=== PATIENT | female | born 1965 | race Caucasian/White ===

== ENCOUNTER 2020-10-24 21:49 | Emergency (ER) | payer OTHER ==
[~2020-10-24] VITALS: Ht 157.5 cm; Wt 68.0 kg
[2020-10-24] MEDS ORDERED: ADDERALL 10 MG10 MG PO (21:59)
[2020-10-24] MEDS ORDERED: PEPCID40 MG PO (21:59)
[2020-10-24 22:35] LABS: ABSOLUTE LYMPHOCYTES 0.9 thou/uL (0.8-5.3); ABSOLUTE MONOCYTES 0.9 thou/uL (0.0-1.2); ABSOLUTE NEUTROPHILS 8.7 thou/uL (1.6-8.1); BASOPHILS 0.2 %; EOSINOPHILS 0.3 %; HEMATOCRIT 41.5 % (37.0-47.0); HEMOGLOBIN 14.3 gm/dL (12.0-15.0); LYMPHOCYTES 8.9 %; MCHC 34.3 g/dL (28.0-37.0); MCV 90.3 fL (80.0-100.0); MONOCYTES 8.1 %; MPV 8.7 fl. (7.2-11.1); NUCLEATED RBCS 0 /100WBC; PLATELET COUNT* 320 thou/uL (150-400); POLYS 82.5 %; RDW-CV 12.4 % (10.5-14.5); WBC 10.5 thou/uL (4.0-11.0)
[2020-10-24 22:47] LABS: CALCIUM 8.5 mg/dL (8.5-10.1); CREATININE 0.7 mg/dL (0.6-1.3); POTASSIUM 3.3 mmol/L (3.5-5.1)
[2020-10-24 22:52] LABS: ALBUMIN 3.4 g/dL (3.4-5.0); TOTAL BILIRUBIN 0.2 mg/dL (<0.1-1.0); TOTAL PROTEIN 7.6 g/dL (6.4-8.2)
[2020-10-24 22:55] LABS: URINE BILIRUBIN NEGATIVE (Negative); URINE BLOOD 1+ (Negative); URINE CLARITY CLEAR; URINE COLOR STRAW; URINE GLUCOSE-RANDOM NEGATIVE (Negative); URINE KETONES NEGATIVE (Negative); URINE LEUKOCYTES-REFLEX 1+ (Negative); URINE NITRITE-REFLEX NEGATIVE (Negative); URINE PROTEIN NEGATIVE (Negative); URINE UROBILINOGEN 0.2 E.U./dl (0.2-1.0)
[2020-10-24 23:07] LABS: CASTS None Seen /LPF (None Seen); SQUAMOUS >10 Many /LPF (0-3)
[2020-10-24 23:08] LABS: CRYSTALS None Seen /LPF (None Seen); URINE RBC 0-2 Rare /HPF (0-2); URINE WBC-REFLEX 6-15 Few /HPF (0-5)
[2020-10-25] MEDS ORDERED: DICYCLOMINE HCL20 MG PO (00:01)
[2020-10-25] MEDS ORDERED: CIPROFLOXACIN500 M1 PO (00:01)
[2020-10-25 00:54] VITALS: BP 122/78
== END 2020-10-25 00:54 | disposition home or self-care (01) ==
LOC: M.ERS 21:49
PROVIDERS: Personal Emergency Response Attendant
DX: A09 Infectious gastroenteritis and colitis, unspecified (principal); R21 Rash and other nonspecific skin eruption; R50.9 Fever, unspecified; Z79.899 Other long term (current) drug therapy; Z88.2 Allergy status to sulfonamides